=== PATIENT | male | born 1945 | race Hispanic/Latino ===

== ENCOUNTER 2017-05-12 22:31 | Emergency (ER) | payer MEDICARE ==
--- NOTE | 2017-05-12 22:56 | ED PDOC ---
Arrival/HPI - General Chief Complaint: Alcohol Ingestion Time Seen by Provider: 05/12/17 22:36 Historian: Patient - History of Present Illness Narrative History of Present Illness (Text): 05/12/17 22:53 Sammy Varghese is a 71 year old male who presents to the Emergency department brought in by EMS for public intoxication tonight. Patient admits to drinking alcohol today. Patient denies any chest pain, shortness of breath, nausea, vomiting, diarrhea, urinary symptoms, back pain, neck pain, headache, dizziness , or any other complaints. Symptom Onset: Gradual Symptom Course: Unchanged Activities at Onset: Light Context: Home Past Medical History - Provider Review Nursing Documentation Reviewed: Yes - Infectious Disease Hx of Infectious Diseases: None - Cardiac Hx Hypertension: Yes - Psychiatric Hx Substance Use: No Family/Social History - Physician Review Nursing Documentation Reviewed: Yes Family/Social History: Unknown Family HX Smoking Status: Unknown If Ever Smoked Hx Alcohol Use: Yes Hx Substance Use: No Allergies/Home Meds Allergies/Adverse Reactions: Allergies No Known Allergies Allergy (Verified 05/12/17 23:02) Home Medications: Home Meds Medication Instructions Recorded Confirmed No Known Home Med 05/12/17 05/12/17 Review of Systems - Physician Review All systems were reviewed & negative as marked: Yes - Review of Systems Constitutional: Normal. absent: Fevers Eyes: Normal ENT: Normal Respiratory: Normal. absent: SOB, Cough Cardiovascular: Normal. absent: Chest Pain Gastrointestinal: Normal. absent: Abdominal Pain, Diarrhea, Nausea, Vomiting Genitourinary Male: Normal. absent: Dysuria, Frequency, Hematuria, Urinary Output Changes Musculoskeletal: Normal. absent: Back Pain, Neck Pain Skin: Normal. absent: Rash Neurological: Normal. absent: Headache, Dizziness Endocrine: Normal Hemo/Lymphatic: Normal Psychiatric: Other (+alcohol intoxication) Physical Exam Vital Signs Reviewed: Yes Vital Signs Temp Pulse Resp BP Pulse Ox 05/13/17 06:16 82 16 132/72 97 05/13/17 05:49 77 16 121/66 99 05/13/17 04:07 75 16 119/59 L 97 05/13/17 02:51 97.9 F 77 19 99 05/12/17 22:50 97.7 F 76 16 106/57 L 96 Temperature: Afebrile Blood Pressure: Normal Pulse: Regular Respiratory Rate: Normal Appearance: Positive for: Well-Appearing, Non-Toxic, Comfortable Pain Distress: None Mental Status: Positive for: Alert and Oriented X 3 - Systems Exam Head: Present: Atraumatic, Normocephalic Pupils: Present: PERRL Extroacular Muscles: Present: EOMI Conjunctiva: Present: Normal Mouth: Present: Moist Mucous Membranes Neck: Present: Normal Range of Motion Respiratory/Chest: Present: Clear to Auscultation, Good Air Exchange. No: Respiratory Distress, Accessory Muscle Use Cardiovascular: Present: Regular Rate and Rhythm, Normal S1, S2. No: Murmurs Abdomen: Present: Normal Bowel Sounds. No: Tenderness, Distention, Peritoneal Signs Back: Present: Normal Inspection Upper Extremity: Present: Normal Inspection. No: Cyanosis, Edema Lower Extremity: Present: Normal Inspection. No: Edema Neurological: Present: GCS=15, CN II-XII Intact, Speech Normal Skin: Present: Warm, Dry, Normal Color. No: Rashes Psychiatric: Present: Alert, Oriented x 3, Normal Insight, Normal Concentration Medical Decision Making ED Course and Treatment: 05/12/17 22:53 Impression: 71 year old male presents brought in by EMS for public intoxication. Differential Diagnosis included but are not limited to: alcohol intoxication Plan: -- Reassess and disposition Progress Notes: - Medication Orders Current Medication Orders: Discontinued Medications Sucralfate (Carafate Oral Susp) 1 gm PO STAT STA Stop: 05/13/17 04:34 Last Admin: 05/13/17 04:50 Dose: 1 gm - Scribe Statement The provider has reviewed the documentation as recorded by the Scribshreya Cross All medical record entries made by the Sadeibshreya were at my direction and personally dictated by me. I have reviewed the chart and agree that the record accurately reflects my personal performance of the history, physical exam, medical decision making, and the department course for this patient. I have also personally directed, reviewed, and agree with the discharge instructions and disposition. Disposition/Present on Arrival - Present on Arrival Any Indicators Present on Arrival: No History of DVT/PE: No History of Uncontrolled Diabetes: No Urinary Catheter: No History of Decub. Ulcer: No History Surgical Site Infection Following: None - Disposition Have Diagnosis and Disposition been Completed?: Yes Diagnosis: Alcohol abuse Disposition: HOME/ ROUTINE Disposition Time: 06:15 Condition: GOOD Discharge Instructions (ExitCare): Abuse of Alcohol (ED) Forms: [employer] (Kazakh)
[2017-05-13 02:51] VITALS: TEMP 97.9
[2017-05-13 04:08] VITALS: RESP 16
[2017-05-13] MEDS ORDERED: Sucralfate 1 gm/10 ml Oral Susp UD PO STA (04:33)
[2017-05-13 06:16] VITALS: BP 132/72; PULSE 82; O2SAT 97
== END 2017-05-13 06:16 | disposition home or self-care (01) ==
LOC: ED 22:31
DX: F10.10 Alcohol abuse, uncomplicated (principal); Y90.9 Presence of alcohol in blood, level not specified

== ENCOUNTER 2017-08-24 21:14 | Emergency (ER) | payer MEDICARE, BC ==
--- NOTE | 2017-08-24 21:44 | ED PDOC ---
Arrival/HPI - General Chief Complaint: Trauma Time Seen by Provider: 08/24/17 21:27 Historian: Patient - History of Present Illness Narrative History of Present Illness (Text): 08/24/17 21:40 A 71 year old male, whose past medical history includes MS, is brought into the emergency department via EMS s/p a fall. The patient states that he was drinking this evening and was walking home from a bar when he lost his balance and fell. The patient states that he did not sustain any injuries or lose consciousness, but had difficulty getting up from the ground which prompted bystanders to call EMS. He was brought into the emergency department by EMS to be evaluated. The patient denies fevers, chills, LOC, headache, dizziness, chest pain, shortness of breath, dyspnea on exertion, cough, abdominal pain, nausea, vomiting, diarrhea, back pain, neck pain, urinary/bowel changes, or any other complaint. PMD: Dr. Kortney Mckeon Time/Duration: Prior to Arrival Symptom Onset: Sudden Symptom Course: Unchanged Activities at Onset: Rest, Light Context: Walking, Street Past Medical History - Provider Review Nursing Documentation Reviewed: Yes - Infectious Disease Hx of Infectious Diseases: None - Cardiac Hx Hypertension: Yes - Psychiatric Hx Substance Use: No Family/Social History - Physician Review Nursing Documentation Reviewed: Yes Family/Social History: No Known Family HX Smoking Status: Unknown If Ever Smoked Hx Alcohol Use: Yes Hx Substance Use: No Allergies/Home Meds Allergies/Adverse Reactions: Allergies No Known Allergies Allergy (Verified 05/12/17 23:02) Home Medications: Home Meds Medication Instructions Recorded Confirmed No Known Home Med 05/12/17 05/12/17 Review of Systems - Physician Review All systems were reviewed & negative as marked: Yes - Review of Systems Constitutional: absent: Fevers, Night Sweats Respiratory: absent: SOB, Cough Cardiovascular: absent: Chest Pain, FRITZ Gastrointestinal: absent: Abdominal Pain, Stool Changes, Diarrhea, Nausea, Vomiting Genitourinary Male: absent: Urinary Output Changes Musculoskeletal: absent: Back Pain, Neck Pain Neurological: absent: Headache, Dizziness Physical Exam Vital Signs Reviewed: Yes Vital Signs Temp Pulse Resp BP Pulse Ox 08/25/17 01:15 64 16 92/56 L 99 08/25/17 00:50 65 18 97/60 L 99 08/24/17 23:45 67 18 94/64 L 100 08/24/17 21:21 97.6 F 70 18 126/50 L 100 Temperature: Afebrile Blood Pressure: Hypotensive Pulse: Regular Respiratory Rate: Normal Appearance: Positive for: Well-Appearing, Non-Toxic, Comfortable Pain Distress: None Mental Status: Positive for: Alert and Oriented X 3 - Systems Exam Head: Present: Atraumatic, Normocephalic Pupils: Present: PERRL Extroacular Muscles: Present: EOMI Conjunctiva: Present: Normal Mouth: Present: Moist Mucous Membranes Neck: Present: Normal Range of Motion Respiratory/Chest: Present: Clear to Auscultation, Good Air Exchange. No: Respiratory Distress, Accessory Muscle Use Cardiovascular: Present: Regular Rate and Rhythm, Normal S1, S2. No: Murmurs Abdomen: Present: Normal Bowel Sounds. No: Tenderness, Distention, Peritoneal Signs Back: Present: Normal Inspection Upper Extremity: Present: Normal Inspection. No: Cyanosis, Edema Lower Extremity: Present: Normal Inspection. No: Edema Neurological: Present: GCS=15, CN II-XII Intact, Speech Normal Skin: Present: Warm, Dry, Normal Color. No: Rashes Psychiatric: Present: Alert, Oriented x 3, Normal Insight, Normal Concentration Medical Decision Making ED Course and Treatment: 08/24/17 21:45 Impression: A 71 year old male brought into the emergency department via EMS for further evaluation s/p a fall while walking home from a bar this evening. Plan: -- Labs -- Reassess and disposition Progress Notes: - Lab Interpretations Lab Results: Lab Results 08/24/17 21:40: Alcohol, Quantitative 261 H I have reviewed the lab results: Yes - PA / MULESER / Resident Statement MD/DO has reviewed & agrees with the documentation as recorded. - Scribe Statement The provider has reviewed the documentation as recorded by the Sadeibe Candice Mark Provider Scribe Attestation: All medical record entries made by the Scribe were at my direction and personally dictated by me. I have reviewed the chart and agree that the record accurately reflects my personal performance of the history, physical exam, medical decision making, and the department course for this patient. I have also personally directed, reviewed, and agree with the discharge instructions and disposition. Disposition/Present on Arrival - Present on Arrival Any Indicators Present on Arrival: No History of DVT/PE: No History of Uncontrolled Diabetes: No Urinary Catheter: No History of Decub. Ulcer: No History Surgical Site Infection Following: None - Disposition Have Diagnosis and Disposition been Completed?: Yes Diagnosis: Alcohol intoxication, Multiple sclerosis Disposition: HOME/ ROUTINE Disposition Time: 06:00 Patient Plan: Discharge Condition: GOOD Discharge Instructions (ExitCare): Alcohol Intoxication (ED) Additional Instructions: Sammy - Return to us anytime you need to. Best- Dr. Dov Hurt Referrals: Marcello Elder MD [Primary Care Provider] - Follow up with primary Forms: Outsell (Lithuanian)
[2017-08-25 04:58] VITALS: RESP 18
[2017-08-25 06:05] VITALS: BP 131/84; PULSE 84; TEMP 98; O2SAT 100
== END 2017-08-25 06:11 | disposition home or self-care (01) ==
LOC: ED 21:14
DX: F10.129 Alcohol abuse with intoxication, unspecified (principal); G35 Multiple sclerosis; I10 Essential (primary) hypertension
CPT/HCPCS: 99285; G0480